=== PATIENT | male | born 1995 | race African-American/Black ===

== ENCOUNTER 2017-03-18 03:17 | Inpatient (IN) | payer SELFPAY ==
[~2017-03-18] VITALS: Ht 180.3 cm; Wt 68.0 kg
[2017-03-18] MEDS ORDERED: SODIUM CHLORIDE 0.9% 1,000 ML IV ONE (03:40)
[2017-03-18] MEDS ORDERED: LORAZEPAM 2MG/ML CPJ ONE (03:44)
[2017-03-18] MEDS ORDERED: LEVETIRACETAM 1,000 MG in SODIUM CHLORIDE 0.9% 100 ML IV ONE (03:45)
[2017-03-18] MEDS ORDERED: LORAZEPAM 2MG/ML CPJ IV ONE (03:45)
[2017-03-18] MEDS ORDERED: LEVETIRACETAM 1,000 MG in SODIUM CHLORIDE 0.9% 100 ML IV NR (04:00)
[2017-03-18 04:01] LABS: BASOPHILS % 0.4 % (0.0-2.0); EOSINOPHILS % 1.6 % (0.0-5.0); HEMATOCRIT. 36.3 % (42.0-52.0); HEMOGLOBIN. 11.9 g/dL (14.0-18.0); LYMPHOCYTES % 19.7 % (20.0-50.0); MEAN CORPUSCULAR VOLUME 94.6 fL (80.0-94.0); MEAN PLATELET VOLUME 7.7 fl (7.4-10.4); MONOCYTES % 10.2 % (2.0-8.0); NEUTROPHILS % 68.1 % (40.0-76.0); PLATELET 124 x1000/uL (130-400); RED BLOOD CELL COUNT 3.84 mill/uL (4.7-6.1); RED CELL DISTRIBUTION WIDTH 12.2 % (11.6-14.6)
[2017-03-18 04:02] LABS: CLARITY URINE CLEAR (CLEAR); COLOR URINE YELLOW (YELLOW); GLUCOSE URINE NEGATIVE (NEGATIVE); KETONES URINE TRACE (NEGATIVE); LEUKOCYTE ESTERASE URINE NEGATIVE (NEGATIVE); NITRITE URINE NEGATIVE (NEGATIVE); OCCULT BLOOD URINE 1+ (NEGATIVE); PROTEIN URINE 1+ (NEGATIVE); SPECIFIC GRAVITY URINE 1.017 (1.005-1.030)
[2017-03-18 04:17] LABS: AMMONIA 48 uMol/L (<32)
[2017-03-18 04:19] LABS: CARBON DIOXIDE 19 mEq/L (21-32); CHLORIDE 103 mEq/L (98-107); ETHANOL BLOOD < 10 mg/dL
[2017-03-18] MEDS ORDERED: SODIUM CHLORIDE 0.9% 1000ML BAG (SEPSIS BOLUS) IV ONE (04:30)
[2017-03-18 04:31] LABS: *AMPHETAMINES SCREEN URINE NEGATIVE (NEGATIVE); *BARBITURATES SCREEN URINE NEGATIVE (NEGATIVE); *BENZODIAZEPINES SCREEN URINE NEGATIVE (NEGATIVE); *COCAINE SCREEN URINE NEGATIVE (NEGATIVE); CANNABINOID URINE SCREEN PRESUMTIVE POSITIVE (NEGATIVE); METHADONE URINE SCREEN NEGATIVE (NEGATIVE); OPIATES URINE SCREEN NEGATIVE (NEGATIVE); PHENCYCLIDINE URINE SCREEN NEGATIVE (NEGATIVE)
[2017-03-18 04:31] LABS: CREATINE KINASE 1714 IU/L (39-308)
[2017-03-18 08:30] VITALS: BP 113/73
[2017-03-18 10:23] VITALS: BP 113/73
[2017-03-18 12:23] VITALS: BP 109/69
[2017-03-18] MEDS: SODIUM CHLORIDE 0.9% 1,000 ML IV SCH ×2 (14:11→23:01)
[2017-03-18] MEDS: LEVETIRACETAM 500MG TABLET PO SCH ×2 (14:15→18:54)
[2017-03-18 15:51] LABS: CARBON DIOXIDE 28 mEq/L (21-32); CHLORIDE 104 mEq/L (98-107)
[2017-03-18 15:52] LABS: BASOPHILS % 0.1 % (0.0-2.0); EOSINOPHILS % 0.5 % (0.0-5.0); HEMATOCRIT. 36.6 % (42.0-52.0); HEMOGLOBIN. 12.2 g/dL (14.0-18.0); LYMPHOCYTES % 10.8 % (20.0-50.0); MEAN CORPUSCULAR HEMOGLOBIN 30.8 pg (28.0-32.0); MEAN CORPUSCULAR VOLUME 92.5 fL (80.0-94.0); MEAN PLATELET VOLUME 7.7 fl (7.4-10.4); MONOCYTES % 7.4 % (2.0-8.0); NEUTROPHILS % 81.2 % (40.0-76.0); PLATELET 118 x1000/uL (130-400); RED BLOOD CELL COUNT 3.95 mill/uL (4.7-6.1); RED CELL DISTRIBUTION WIDTH 12.2 % (11.6-14.6)
[2017-03-18 16:08] LABS: CREATINE KINASE 1133 IU/L (39-308)
[2017-03-18 16:26] VITALS: BP 114/76
[2017-03-18] MEDS ORDERED: KEPPRA (16:45)
[2017-03-18 20:00] VITALS: BP 104/73
[2017-03-19] VITALS: BP 112/75
[2017-03-19 04:00] VITALS: BP 106/68
[2017-03-19] MEDS: LEVETIRACETAM 500MG TABLET PO SCH ×2 (08:23→16:04)
[2017-03-19] MEDS: SODIUM CHLORIDE 0.9% 1,000 ML IV SCH (08:24)
[2017-03-19 09:00] VITALS: BP 133/88
[2017-03-19] MEDS ORDERED: KEPP500 PO (13:18)
[2017-03-19 15:19] VITALS: BP 108/66
== END 2017-03-19 16:50 | disposition home or self-care (01) | DRG 53 ==
LOC: ER 03:17 → 5WST 05:06 → EDBEDREQ 05:25 → ENRESERV 06:53
PROVIDERS: ADMIT Family Medicine; ATTEND Family Medicine
DX: G40.909 Epilepsy, unspecified, not intractable, without status epilepticus (principal); G93.41 Metabolic encephalopathy; E87.2 Acidosis; M62.82 Rhabdomyolysis; E86.0 Dehydration; F12.10 Cannabis abuse, uncomplicated; Z93.1 Gastrostomy status; Z87.820 Personal history of traumatic brain injury; Z91.19 Patient's noncompliance with other medical treatment and regimen
CPT/HCPCS: 36415; 70450; 71010; 80048; 80053; 80305; 81001; 82140; 82550; 82962; 83605; 85025; 87040; 87086; 93005; 96361; 96365; 96375; 99291; G0482; J1953; J2060; J7030; J7050